=== PATIENT | female | born 1980 | race Two or more races ===

== ENCOUNTER 2018-09-30 18:00 | Emergency (ER) | payer SELFPAY ==
[~2018-09-30] VITALS: Ht 154.9 cm; Wt 58.1 kg
[2018-09-30 18:22] VITALS: BP 117/62
[2018-09-30 18:55] LABS: Urine Bacteria FEW /hpf (None Seen); Urine Blood 2+ /uL (Negative); Urine Specific Gravity 1.005 (1.001-1.035); Urine WBC 5 /hpf (0 - 5)
== END 2018-09-30 20:10 | disposition home or self-care (01) ==
LOC: ER 18:00
DX: N39.0 Urinary tract infection, site not specified (principal)
CPT/HCPCS: 81001; 81025

== ENCOUNTER 2018-10-04 12:47 | Emergency (ER) | payer MEDICAID ==
[~2018-10-04] VITALS: Ht 154.9 cm; Wt 58.1 kg
[2018-10-04 13:26] LABS: Urine WBC None Seen /hpf (0 - 5)
[2018-10-04 13:49] LABS: Basophils # (auto) 0 uL; Basophils % (auto) 0.6 % (0.0-2.0); Eosinophils # (auto) 0 uL; Eosinophils % (auto) 0.4 % (0.0-7.0); Hematocrit 43.8 % (36.0-46.0); Hemoglobin 14.2 g/dL (12.2-16.2); Lymphocytes # (auto) 1.7 uL; Lymphocytes % (auto) 24.1 % (10.0-50.0); Mean Corpuscular Hemoglobin 27.6 pg (28.0-32.0); Mean Corpuscular Hgb Conc. 32.5 g/dL (32.0-36.0); Monocytes # (auto) 0.5 uL; Monocytes % (auto) 6.9 % (0.0-12.0); Neutrophils # (auto) 4.7 uL; Nucleated Red Blood Cells % 0.1 %; Platelet Count (auto) 330 10^3/uL (140-450); Red Blood Cells 5.15 10^6/uL (4.0-5.20); Red Cell Distribution Width 14.8 % (11.8-14.3); White Blood Cell 6.9 10^3/uL (4.4-10.8)
[2018-10-04 14:01] LABS: Urine Bacteria NONE SEEN /hpf (None Seen); Urine Blood 1+ /uL (Negative); Urine Specific Gravity 1.006 (1.001-1.035)
[2018-10-04 14:09] LABS: Albumin 3.8 g/dL (3.4-5.0); BUN/Creatinine Ratio 22.2; Calcium 8.5 mg/dL (8.5-10.1); Potassium 4.5 mmol/L (3.5-5.1)
[2018-10-04 14:11] LABS: Bilirubin, Total 0.5 mg/dL (0.2-1.0); Total Protein 8.1 g/dL (6.4-8.2)
[2018-10-04 17:03] VITALS: BP 121/65
== END 2018-10-04 17:04 | disposition home or self-care (01) ==
LOC: ER 12:47
DX: D25.9 Leiomyoma of uterus, unspecified (principal); N72 Inflammatory disease of cervix uteri; Z97.5 Presence of (intrauterine) contraceptive device
CPT/HCPCS: 36415; 76830; 76856; 80053; 81001; 84702; 85025

== ENCOUNTER 2022-04-19 19:52 | Inpatient (IN) | payer MEDICAID ==
[~2022-04-19] VITALS: Ht 154.9 cm; Wt 62.0 kg
[2022-04-19] MEDS ORDERED: LACTATED RINGER'S 1,000 ML IV ONE ×2 (20:30→21:15)
[2022-04-19] MEDS ORDERED: ACETAMINOPHEN 325 MG TAB PO ONE (20:30)
[2022-04-19 23:02] LABS: Urine Bacteria NONE SEEN /hpf (None Seen); Urine Blood 3+ /uL (Negative); Urine Specific Gravity 1.021 (1.001-1.035); Urine WBC 1 /hpf (0 - 5)
[2022-04-19 23:35] LABS: Basophils # (auto) 0.1 10 ^3/uL (0-0.2); Basophils % (auto) 0.7 % (0.0-2.0); Eosinophils # (auto) 0 10 ^3/uL (0-0.8); Eosinophils % (auto) 0.1 % (0.0-7.0); Hematocrit 33.8 % (36.0-46.0); Hemoglobin 10.8 g/dL (12.2-16.2); Lymphocytes # (auto) 0.9 10 ^3/uL (0.4-5.4); Lymphocytes % (auto) 8.9 % (10.0-50.0); Mean Corpuscular Hemoglobin 23.3 pg (28.0-32.0); Mean Corpuscular Volume 72.9 fL (80.0-100.0); Monocytes # (auto) 0.4 10 ^3/uL (0-1.3); Monocytes % (auto) 4.2 % (0.0-12.0); Neutrophils # (auto) 8.4 10 ^3/uL (1.6-8.6); Neutrophils % (auto) 86.1 % (37.0-80.0); Red Blood Cells 4.64 10^6/uL (4.0-5.20); Red Cell Distribution Width 16.6 % (11.8-14.3); White Blood Cell 9.7 10^3/uL (4.4-10.8)
[2022-04-19 23:58] LABS: Lactic Acid w/Reflex 2.5 mmol/L (0.4-2.0)
[2022-04-20 00:02] LABS: Albumin 3.6 g/dL (3.4-5.0); Calcium 8.7 mg/dL (8.5-10.1); Potassium 3.7 mmol/L (3.5-5.1)
[2022-04-20 00:04] LABS: BUN/Creatinine Ratio 13.3
[2022-04-20 00:06] LABS: Bilirubin, Total 0.4 mg/dL (0.2-1.0); Total Protein 7.4 g/dL (6.4-8.2)
[2022-04-20] MEDS ORDERED: FAMOTIDINE (10MG/ML) 2ML VL IV ONE (02:45)
[2022-04-20] MEDS ORDERED: LIDOCAINE VISCOUS 2% 15ML UD PO ONE (02:45)
[2022-04-20] MEDS ORDERED: ONDANSETRON HCL 4 MG/2 ML VIAL IV ONE (02:45)
[2022-04-20] MEDS ORDERED: ALUM & MAG HYDROX-SIMETH LIQ(MAALOX) 30 ML PO ONE (02:45)
[2022-04-20] MEDS ORDERED: KETOROLAC TROMETH 30 MG/ML 1ML VIAL IV ONE (02:45)
[2022-04-20] MEDS ORDERED: ACETAMINOPHEN 500 MG TAB PO ONE ×3 (09:30→16:00)
[2022-04-20] MEDS ORDERED: SODIUM CHLORIDE 0.9% 1,000 ML IV ONE ×2 (09:30→10:00)
[2022-04-20 11:09] LABS: Basophils # (auto) 0 10 ^3/uL (0-0.2); Eosinophils # (auto) 0 10 ^3/uL (0-0.8); Hemoglobin 9.1 g/dL (12.2-16.2); Red Cell Distribution Width 16.3 % (11.8-14.3)
[2022-04-20 11:11] LABS: Basophils % (auto) 0.1 % (0.0-2.0); Hematocrit 28.8 % (36.0-46.0); Lymphocytes # (auto) 0.5 10 ^3/uL (0.4-5.4); Mean Corpuscular Hemoglobin 22.9 pg (28.0-32.0); Mean Corpuscular Hgb Conc. 31.6 g/dL (32.0-36.0); Mean Corpuscular Volume 72.5 fL (80.0-100.0); Monocytes # (auto) 0.3 10 ^3/uL (0-1.3); Monocytes % (auto) 3.7 % (0.0-12.0); Neutrophils % (auto) 90.2 % (37.0-80.0); Nucleated Red Blood Cells % 0.1 %; Red Blood Cells 3.97 10^6/uL (4.0-5.20); White Blood Cell 8.9 10^3/uL (4.4-10.8)
[2022-04-20 11:25] LABS: BUN/Creatinine Ratio 5.9; Calcium 7.6 mg/dL (8.5-10.1); Potassium 3.1 mmol/L (3.5-5.1)
[2022-04-20 11:54] LABS: Lactic Acid w/Reflex 4.2 mmol/L (0.4-2.0)
[2022-04-20] MEDS ORDERED: NITROGLYCERIN 0.4 MG SL TAB SL PRN (12:15)
[2022-04-20] MEDS ORDERED: SODIUM CHLORIDE 0.9% 2,000 ML IV ONE (12:15)
[2022-04-20] MEDS ORDERED: ACETAMINOPHEN 325 MG TAB PO PRN (12:15)
[2022-04-20] MEDS ORDERED: MORPHINE SULFATE INJ 2 MG/ml SYRG IV PRN ×2 (12:15)
[2022-04-20] MEDS ORDERED: HYDROcodone-ACET 5/325MG TAB PO PRN (12:15)
[2022-04-20] MEDS ORDERED: POTASSIUM CHL 20 Meq TABLET PO ONE (12:15)
[2022-04-20] MEDS ORDERED: ONDANSETRON HCL 4 MG/2 ML VIAL IV PRN ×2 (12:15)
[2022-04-20] MEDS ORDERED: levoFLOXacin 500MG 100 ML IV ONE (12:30)
[2022-04-20] MEDS: POTASSIUM CHL 20MEQ/100ML 100 ML IV SCH ×2 (13:30→14:45)
[2022-04-21] MEDS: metroNIDAZOLE 500MG/100ML 100 ML IV SCH ×4 (01:14→22:59)
[2022-04-21 01:31] VITALS: BP 115/56
[2022-04-21] MEDS ORDERED: ACETAMINOPHEN 325 MG TAB PO PRN (02:15)
[2022-04-21 05:00] VITALS: BP 100/44
[2022-04-21 05:48] LABS: Basophils # (auto) 0 10 ^3/uL (0-0.2); Basophils % (auto) 0.3 % (0.0-2.0); Eosinophils # (auto) 0 10 ^3/uL (0-0.8); Hematocrit 30.8 % (36.0-46.0); Hemoglobin 9.9 g/dL (12.2-16.2); Lymphocytes # (auto) 1.2 10 ^3/uL (0.4-5.4); Lymphocytes % (auto) 14.7 % (10.0-50.0); Mean Corpuscular Hemoglobin 23.6 pg (28.0-32.0); Mean Corpuscular Hgb Conc. 32.1 g/dL (32.0-36.0); Mean Corpuscular Volume 73.6 fL (80.0-100.0); Monocytes # (auto) 0.4 10 ^3/uL (0-1.3); Monocytes % (auto) 4.7 % (0.0-12.0); Neutrophils # (auto) 6.5 10 ^3/uL (1.6-8.6); Neutrophils % (auto) 80.3 % (37.0-80.0); Red Blood Cells 4.18 10^6/uL (4.0-5.20); Red Cell Distribution Width 16.5 % (11.8-14.3); White Blood Cell 8.1 10^3/uL (4.4-10.8)
[2022-04-21 06:06] LABS: Potassium 3.7 mmol/L (3.5-5.1)
[2022-04-21 06:12] LABS: Albumin 2.8 g/dL (3.4-5.0); BUN/Creatinine Ratio 5.8; Calcium 8.1 mg/dL (8.5-10.1)
[2022-04-21 06:16] LABS: Bilirubin, Total 0.2 mg/dL (0.2-1.0); Total Protein 6.3 g/dL (6.4-8.2)
[2022-04-21 09:00] VITALS: BP 120/61
[2022-04-21] MEDS: levoFLOXacin 500MG 100 ML IV SCH (09:39)
[2022-04-21 12:29] VITALS: BP 107/66
[2022-04-21] MEDS: LORazepam 2MG/ML-1ML VIAL IV PRN (14:57)
[2022-04-21 16:56] VITALS: BP 110/66
[2022-04-21 22:48] VITALS: BP 109/51
[2022-04-22 05:00] VITALS: BP 108/54
[2022-04-22] MEDS: metroNIDAZOLE 500MG/100ML 100 ML IV SCH ×3 (06:09→22:47)
[2022-04-22 08:55] VITALS: BP 119/69
[2022-04-22] MEDS: levoFLOXacin 500MG 100 ML IV SCH (10:39)
[2022-04-22] MEDS ORDERED: LOPERAMIDE HCL 2 MG CAP/TAB PO PRN (11:45)
[2022-04-22] MEDS ORDERED: LACTATED RINGER'S 1,000 ML IV ONE (11:45)
[2022-04-22] MEDS ORDERED: LOPERAMIDE HCL 2 MG CAP/TAB PO ONE (11:45)
[2022-04-22] MEDS: LORazepam 2MG/ML-1ML VIAL IV PRN ×2 (12:33→22:47)
[2022-04-22 13:00] VITALS: BP 110/74
[2022-04-22 17:04] VITALS: BP 116/71
[2022-04-22 22:00] VITALS: BP 117/83
[2022-04-23 05:00] VITALS: BP 113/59
[2022-04-23] MEDS: metroNIDAZOLE 500MG/100ML 100 ML IV SCH ×2 (05:17→14:04)
[2022-04-23 09:00] VITALS: BP 103/70
[2022-04-23] MEDS ORDERED: METR500T PO (10:35)
[2022-04-23] MEDS ORDERED: LEVO500T31 PO (10:35)
[2022-04-23] MEDS ORDERED: LORA0.5T20 PO (10:35)
[2022-04-23] MEDS: levoFLOXacin 500MG 100 ML IV SCH (10:53)
[2022-04-23 15:26] VITALS: BP 113/41
== END 2022-04-23 16:00 | disposition home or self-care (01) | DRG 248 ==
LOC: ER 19:52 → OVERFLOW 04-20 12:10 → WEST WING 04-20 22:58
PROVIDERS: ADMIT Registered Nurse; ATTEND Family Medicine
DX: A04.5 Campylobacter enteritis (principal); D50.9 Iron deficiency anemia, unspecified; K52.9 Noninfective gastroenteritis and colitis, unspecified; K42.9 Umbilical hernia without obstruction or gangrene; Z20.822 Contact with and (suspected) exposure to COVID-19; E86.0 Dehydration; F41.9 Anxiety disorder, unspecified
CPT/HCPCS: 36415; 71045; 74176; 80048; 80053; 81001; 81025; 83605; 83735; 84484; 85025; 85048; 87040; 87045; 87086; 87177; 87427; 87493; 87804; 96361; 96365; 96375; G0378; J1885; J1956; J3490

== ENCOUNTER 2022-10-10 13:51 | Emergency (ER) | payer MEDICAID ==
[~2022-10-10] VITALS: Ht 154.9 cm; Wt 130.0 kg
[~2022-10-10 13:51] MED LIST: LEVO500T31 PO; LORA0.5T20 PO; METR500T PO
[2022-10-10] MEDS ORDERED: PANTOPRAZOLE 40 MG/10 ML VIAL INJ IV ONE (14:15)
[2022-10-10] MEDS ORDERED: SODIUM CHLORIDE 0.9% 1,000 ML IVB ONE (14:15)
[2022-10-10] MEDS ORDERED: MORPHINE SULFATE 4 MG/ML SYR/VIAL IV ONE (14:15)
[2022-10-10] MEDS ORDERED: ONDANSETRON HCL 4 MG/2 ML VIAL IV ONE (14:15)
[2022-10-10 14:33] LABS: Urine Bacteria NONE SEEN /hpf (None Seen); Urine Blood Negative /uL (Negative); Urine Specific Gravity 1.005 (1.001-1.035); Urine WBC <1 /hpf (0 - 5)
[2022-10-10 15:04] LABS: Alcohol, Urine < 3.0 mg/dL (0-10); Amphetamine Screen, Urine NEGATIVE (NEGATIVE); Barbiturate Scree,Urine NEGATIVE (NEGATIVE); Benzodiazephine Screen, Urine NEGATIVE (NEGATIVE); Cannabinoid Screen, Urine NEGATIVE (NEGATIVE); Cocaine Screen, Urine NEGATIVE (NEGATIVE); Opiate Scree,Urine NEGATIVE (NEGATIVE); Phencyclidine Screen, Urine NEGATIVE (NEGATIVE)
[2022-10-10 15:06] LABS: Basophils # (auto) 0 10 ^3/uL (0-0.2); Basophils % (auto) 0.5 % (0.0-2.0); Eosinophils # (auto) 0 10 ^3/uL (0-0.8); Eosinophils % (auto) 0.6 % (0.0-7.0); Hematocrit 45.4 % (36.0-46.0); Hemoglobin 14.6 g/dL (12.2-16.2); Lymphocytes % (auto) 11.3 % (10.0-50.0); Mean Corpuscular Hemoglobin 27.3 pg (28.0-32.0); Mean Corpuscular Hgb Conc. 32.3 g/dL (32.0-36.0); Mean Corpuscular Volume 84.5 fL (80.0-100.0); Monocytes # (auto) 0.3 10 ^3/uL (0-1.3); Monocytes % (auto) 3.4 % (0.0-12.0); Neutrophils # (auto) 7.2 10 ^3/uL (1.6-8.6); Neutrophils % (auto) 84.2 % (37.0-80.0); Red Blood Cells 5.37 10^6/uL (4.0-5.20); Red Cell Distribution Width 18.9 % (11.8-14.3); White Blood Cell 8.5 10^3/uL (4.4-10.8)
[2022-10-10 15:27] LABS: Albumin 3.8 g/dL (3.4-5.0); BUN/Creatinine Ratio 12.5; Potassium 3.8 mmol/L (3.5-5.1)
[2022-10-10 15:30] LABS: Bilirubin, Total 0.6 mg/dL (0.2-1.0); Total Protein 7.6 g/dL (6.4-8.2)
[2022-10-10] MEDS ORDERED: ONDA-144 PO (15:45)
[2022-10-10] MEDS ORDERED: PANT40TA2 PO (15:45)
[2022-10-10] MEDS ORDERED: TRAM-297 PO (18:24)
[2022-10-10] MEDS ORDERED: KETOROLAC TROMETH 30 MG/ML 1ML VIAL IV ONE (18:30)
[2022-10-10 19:17] VITALS: BP 134/86
[2022-10-11] MEDS ORDERED: DICY10CA PO (09:39)
[2022-10-11] MEDS ORDERED: HYDR50CA PO (10:00)
== END 2022-10-10 20:22 | disposition home or self-care (01) ==
LOC: ER 13:51
DX: K29.70 Gastritis, unspecified, without bleeding (principal); Z79.2 Long term (current) use of antibiotics; Z79.899 Other long term (current) drug therapy
CPT/HCPCS: 36415; 76705; 80053; 80307; 81001; 82150; 83690; 85025; 96361; 96374; 96375; 99284; C9113; J1885; J2405; J7030

== ENCOUNTER 2022-10-11 07:57 | Emergency (ER) | payer MEDICAID ==
[~2022-10-11] VITALS: Ht 154.9 cm; Wt 59.3 kg
[~2022-10-11 07:57] MED LIST changes: +ONDA-144 PO; +PANT40TA2 PO; +TRAM-297 PO
[2022-10-11 09:07] VITALS: BP 146/77
[2022-10-11] MEDS ORDERED: diphenhdrAMINE HCL 50 MG/1 ML VL IM ONE (09:30)
[2022-10-11] MEDS ORDERED: DICY10CA PO (09:39)
[2022-10-11] MEDS ORDERED: HYDR50CA PO (10:00)
== END 2022-10-11 10:01 | disposition home or self-care (01) ==
LOC: ER 07:57
DX: F41.8 Other specified anxiety disorders (principal); Z87.19 Personal history of other diseases of the digestive system; Z79.2 Long term (current) use of antibiotics; Z79.899 Other long term (current) drug therapy
CPT/HCPCS: 96372; 99283; J1200

== ENCOUNTER 2023-08-25 16:43 | Emergency (ER) | payer MEDICAID ==
[~2023-08-25] VITALS: Ht 154.9 cm; Wt 58.9 kg
[~2023-08-25 16:43] MED LIST changes: +DICY10CA PO; +HYDR50CA PO; +LORA-1121 PO; -LORA0.5T20 PO
[2023-08-25 19:07] VITALS: BP 125/59; PULSE 118; RESP 18; TEMP 97.8; O2SAT 99
[2023-08-25] MEDS: VASELINE LIP THERAPY 10gm TOP PRN ×2 (20:30→21:05)
[2023-08-25] MEDS ORDERED: BACITRACIN TOP OINT 1 UD PKG TOP ONE (20:30)
[2023-08-25] MEDS ORDERED: LIDOCAINE 1% HCL (LOCAL ANESTH.) INJ 20ML MDV IJ ONE (21:15)
[2023-08-25] MEDS ORDERED: TETANUS-DIPTH-ACEL PERTUSSIS 0.5ML SYR Tdap IM ONE (23:00)
[2023-08-25] MEDS ORDERED: ACET-1304 PO (23:04)
[2023-08-25] MEDS ORDERED: ACETAMINOPHEN 500 MG TAB PO ONE ×2 (23:15)
== END 2023-08-25 23:23 | disposition home or self-care (01) ==
LOC: ER 16:43
DX: S61.212A Laceration without foreign body of right middle finger without damage to nail, initial encounter (principal); S61.216A Laceration without foreign body of right little finger without damage to nail, initial encounter; F41.9 Anxiety disorder, unspecified; Z88.8 Allergy status to other drugs, medicaments and biological substances; Z79.1 Long term (current) use of non-steroidal anti-inflammatories (NSAID); Z79.899 Other long term (current) drug therapy; W45.8XXA Other foreign body or object entering through skin, initial encounter; Y93.E9 Activity, other interior property and clothing maintenance; Y92.89 Other specified places as the place of occurrence of the external cause; Y99.8 Other external cause status
CPT/HCPCS: 12005; 73120; 90471; 90715; 99283; J2001

== ENCOUNTER 2024-06-14 05:11 | Emergency (ER) | payer MEDICAID ==
[~2024-06-14] VITALS: Ht 154.9 cm; Wt 62.3 kg
[~2024-06-14 05:11] MED LIST changes: +ACET-1304 PO
[2024-06-14 06:31] LABS: COVID19 ANTIGEN SOFIA FIA NEGATIVE (NEGATIVE); Rapid Influenza A Negative (Negative); Rapid Influenza B Negative (Negative)
[2024-06-14] MEDS: LORazepam 0.5 MG TAB PO ONE (06:57)
[2024-06-14 07:29] LABS: Basophils # (auto) 0 10 ^3/uL (0-0.2); Basophils % (auto) 0.2 % (0.0-2.0); Eosinophils # (auto) 0 10 ^3/uL (0-0.8); Eosinophils % (auto) 0.2 % (0.0-7.0); Hematocrit 44.7 % (36.0-46.0); Hemoglobin 14.8 g/dL (12.2-16.2); Lymphocytes # (auto) 0.5 10 ^3/uL (0.4-5.4); Lymphocytes % (auto) 6.7 % (10.0-50.0); Mean Corpuscular Hemoglobin 27.3 pg (28.0-32.0); Mean Corpuscular Hgb Conc. 33.2 g/dL (32.0-36.0); Mean Corpuscular Volume 82.2 fL (80.0-100.0); Monocytes # (auto) 0.2 10 ^3/uL (0-1.3); Monocytes % (auto) 2.9 % (0.0-12.0); Neutrophils # (auto) 7.3 10 ^3/uL (1.6-8.6); Platelet Count (auto) 294 10^3/uL (140-450); Red Blood Cells 5.44 10^6/uL (4.0-5.20); Red Cell Distribution Width 15.5 % (11.8-14.3); White Blood Cell 8.1 10^3/uL (4.4-10.8)
[2024-06-14 07:39] LABS: Chloride 107 mmol/L (98-107); Sodium 138 mmol/L (136-145)
[2024-06-14 07:40] LABS: Anion Gap 7 (5-15); Calcium 9.3 mg/dL (8.7-10.4); Carbon Dioxide 24 mmol/L (20-30)
[2024-06-14 07:45] LABS: BUN/Creatinine Ratio 15.1 (10.0-20.0); Blood Urea Nitrogen 11 mg/dL (9-23); Glucose 110 mg/dL (74-106)
[2024-06-14 08:00] VITALS: PULSE 106; RESP 18; O2SAT 98
[2024-06-14 08:45] LABS: Urine Bacteria FEW /hpf (None Seen); Urine Blood TRACE /uL (Negative); Urine Clarity Clear (Clear); Urine Color Light-Yellow (Yellow); Urine Mucus FEW (None Seen); Urine Protein, UAD Negative (Negative); Urine Specific Gravity 1.012 (1.001-1.035); Urine Urobilinogen Normal (Negative); Urine WBC <1 /hpf (0 - 5)
[2024-06-14] MEDS ORDERED: DOCUSATE SOD 100 MG CAP PO PRN (10:30)
[2024-06-14] MEDS ORDERED: ONDANSETRON HCL 4 MG/2 ML VIAL IV PRN (10:30)
[2024-06-14] MEDS ORDERED: NITROGLYCERIN 0.4 MG SL TAB SL PRN (10:30)
[2024-06-14] MEDS: PANTOPRAZOLE 40 MG/10 ML VIAL INJ IV ONE (10:55)
[2024-06-14] MEDS: DICYCLOMINE HCL (10MG/ML) 2 ML AMPULE IM ONE (10:55)
[2024-06-14] MEDS: SODIUM CHLORIDE 0.9% 1,000 ML IV SCH (10:55)
[2024-06-14] MEDS: KETOROLAC TROMETH 30 MG/ML 1ML VIAL IV ONE (10:56)
[2024-06-14 11:58] VITALS: BP 112/58; PULSE 72; RESP 16; TEMP 98.9; O2SAT 98
[2024-06-14] MEDS ORDERED: KETOROLAC TROMETH 30 MG/ML 1ML VIAL IV PRN (16:30)
[2024-06-14] MEDS ORDERED: DICYCLOMINE HCL 10 MG CAP PO SCH (18:00)
[2024-06-15] MEDS ORDERED: PANTOPRAZOLE 40 MG/10 ML VIAL INJ IV SCH (10:00)
[2024-06-15] MEDS ORDERED: FLORASTOR (S. BOULARDII) 250 MG CAP PO SCH (10:00)
== END 2024-06-14 14:03 | disposition left against medical advice (07) ==
LOC: ER 05:11 → UNDOADMIN 10:21 → OVERFLOW 10:21
DX: K52.9 Noninfective gastroenteritis and colitis, unspecified (principal); Z53.29 Procedure and treatment not carried out because of patient's decision for other reasons; Z88.6 Allergy status to analgesic agent; Z20.822 Contact with and (suspected) exposure to COVID-19
CPT/HCPCS: 36415; 74176; 80048; 81001; 81025; 85025; 87086; 87426; 87804; 96361; 96372; 96374; 99285; J0500; J2470; J7030; J1885